=== PATIENT | female | born 1955 | race Caucasian/White ===

== ENCOUNTER 2021-03-17 21:16 | Emergency (ER) | payer OTHER ==
[~2021-03-17] VITALS: Ht 149.9 cm; Wt 54.4 kg
[2021-03-18 00:02] VITALS: BP 148/92
== END 2021-03-18 00:03 | disposition home or self-care (01) ==
LOC: FSED 21:55
DX: S50.01XA Contusion of right elbow, initial encounter (principal); W01.0XXA Fall on same level from slipping, tripping and stumbling without subsequent striking against object, initial encounter; Y93.01 Activity, walking, marching and hiking; Y99.0 Civilian activity done for income or pay; I10 Essential (primary) hypertension
CPT/HCPCS: 99283